=== PATIENT | male | born 2000 | race Caucasian/White ===

== ENCOUNTER 2025-06-19 12:56 | Observation (INO) ==
--- NOTE | 2025-06-19 13:08 | Emergency Department Note ---
Impression & Plan Intractable nausea and vomiting, Diarrhea ED Provider Note CHIEF COMPLAINT: Abdominal pain, vomiting, diarrhea HISTORY OF PRESENTING ILLNESS: The patient is a 24-year-old male who arrives to the emergency department for evaluation of persistent abdominal pain, nausea, vomiting and diarrhea over the last few days. He reports he was seen at urgent care, and prescribed oral Zofran, which has not helped his symptoms. He states no fever, or recent illness. He reports his abdomen hurts in the epigastrium, however he has pain in the lower abdomen as well. He reports diarrhea is yellow in color, he denies any blood. He denies dysuria, or flank pain, he reports no radiation into the testicles. Patient reports medical marijuana use, with previous episodes of hyperemesis. He reports his most recent episode required a 2-week inpatient hospitalization for dehydration, and symptom control. REVIEW OF SYSTEMS: See HPI for pertinent positives and pertinent negatives. ALLERGIES: See below MEDICATIONS: See below PAST MEDICAL HISTORY: See below PHYSICAL EXAM: VITALS: Vitals are noted on the nurse's note and reviewed by myself. Vital signs stable. GENERAL: 24-year-old male, in mild distress, diaphoretic, well-developed well- nourished. SKIN: The skin was without rashes, erythema, edema, or bruising. HEAD: Normocephalic atraumatic. EARS: External auditory canals clear, tympanic membranes pearly stack without erythema or effusion bilaterally. EYES: Pupils equal round and reactive to light and accommodation. Conjunctivae without injection, sclerae without icterus. Extraocular movements intact. NOSE: Patent, turbinates without inflammation or discharge. No sinus tenderness. MOUTH: Mucous membranes moist. Tonsils are not enlarged. Pharynx without erythema or exudate. Uvula midline. Airway patent. Tongue does not deviate. NECK: Supple without nuchal rigidity. No lymphadenopathy. Cervical spine is nontender. No JVD. HEART: Regular rate and rhythm without murmurs gallops or rubs. LUNGS: Clear to auscultation bilaterally without wheezes, rales or rhonchi. No retractions or accessory muscle use. ABDOMEN: Positive bowel sounds x 4. Soft, tenderness to palpation epigastrium, bilateral lower quadrants. No rebound tenderness or guarding. MUSCULOSKELETAL: No muscle atrophy, erythema, or edema noted. Normal gait. Strength 5/5 throughout. NEURO: Patient was alert and oriented to person place and time. No focal neurological deficits. DIFFERENTIAL DIAGNOSIS: Appendicitis, testicular torsion, infections, diverticulitis, UTI, obstruction, mesenteric ischemia, aortic pathology, inflammatory bowel disease, renal colic, PUD, pancreatitis, biliary pathology, hernia, volvulus, constipation, as well as other pathologies. ED COURSE AND MEDICAL DECISION MAKING: MEDICATIONS GIVEN: 2 L NSS bolus, 4 mg IV Zofran, 1 mg IM Haldol MONITOR: Continuous flume worker: Order was placed for continuous flume worker. Patient was placed on the flume worker and continuous pulse ox. Patient was noted to be in normal sinus rhythm at an initial rate of 76 bpm per my interpretation. INTERPRETATION OF LABS: I interpreted the labs with full lab results as below in the lab section of this note. Pertinent lab results discussed in the MDM section below. INTERPRETATION OF IMAGING: Imaging studies were interpreted by myself and read by radiology as per the imaging section of this note. EXTERNAL RECORDS REVIEWED: Visit note from [facility] urgent care. CHRONIC MEDICAL/SOCIAL CONDITIONS AFFECTING CARE: Medical marijuana use, history of cannabinoid hyperemesis. MDM SUMMARY: The patient is a pleasant, 24-year-old male who arrives to the emergency department for evaluation of the above-stated complaint. A saline lock was established, CBC, CMP, lactate, lipase, urinalysis were obtained. Lab work shows no leukocytosis, with slight anemia. CMP is unremarkable. Lipase negative. Lactate 1.7. Urinalysis shows 3+ ketones. Stool culture negative. Patient was provided IV fluids, IV Zofran, and IM Haldol, with no relief of symptoms. CT imaging of the abdomen and pelvis with IV contrast was obtained due to the severe tenderness to palpation, CT imaging shows no acute findings. Parents were at bedside upon reevaluation. They stated the patient required 2 weeks of hospital admission for IV hydration and symptom control. The patient reports he is still having severe nausea, vomiting, and abdominal pain. I recommended capsaicin cream, which he declined as he said it does not work. I do believe the patient will require hospital admission at this time, as I fear he will not have successful resolution of symptoms, and likely return to the emergency department. I spoke with the resident working with Dr. Johansen, who agreed to evaluate the patient for admission. Please refer to their documentation for further patient workup and care. DIAGNOSIS: Intractable nausea and vomiting, diarrhea The chart was completed utilizing [employer] Speech voice recognition software. Grammatical errors, random word insertions, pronoun errors, and incomplete sentences are an occasional consequence of this system due to software limitations, ambient noise, and hardware issues. Any formal questions or concerns about the content, text, or information contained within the body of this dictation should be directly addressed to the provider for clarification. Past Med/Surg History Problem List (Updated 06/19/25 @ 18:03 by ROLA Choudhary) Diarrhea (Acute) Intractable nausea and vomiting (Acute) Social History Tobacco Type: E-cigarettes / Vaping Feels Safe at Home: Yes Allergies Allergies Allergy/AdvReac Type Severity Reaction Status Date / Time No Known Allergies Allergy Unverified 06/19/25 17:21 Home Meds Home Medications Medication Instructions Recorded Confirmed No Known Home Medications 06/19/25 06/19/25 Results & Data (ED) Vital Signs Vital Signs - 24 hr 06/19/25 12:59 06/19/25 13:27 06/19/25 13:27 Temperature 36 C L Temperature Source Temporal Artery Scan Pulse Rate 76 81 Pulse Rate [Apical] 81 Pulse Rate from SpO2 Sensor Pulse Rhythm Regular Pulse Rhythm [Apical] Regular Pulse Strength Normal Pulse Strength [Apical] Normal Respiratory Rate 19 14 14 Respiratory Effort / Characteristics Non-Labored Spontaneous Non-Labored Spontaneous Respiratory Depth Normal Normal Respiratory Pattern Regular Regular Blood Pressure 133/85 Blood Pressure [Right Arm] 142/103 H Blood Pressure Mean 101 Blood Pressure Mean [Right Arm] 116 Blood Pressure Position [Right Arm] Sitting Pulse Oximetry 100 100 100 Oxygen Delivery Method Room Air Room Air Room Air Sepsis Recent Fever Within 48 Hours No Sepsis New/Unexplained Change in Mental Status No Sepsis Action Taken by Nursing No Action Required 06/19/25 14:33 06/19/25 14:41 06/19/25 15:00 Temperature Temperature Source Pulse Rate 72 Pulse Rate [Apical] 80 Pulse Rate from SpO2 Sensor 76 Pulse Rhythm Pulse Rhythm [Apical] Regular Pulse Strength Pulse Strength [Apical] Normal Respiratory Rate 18 16 Respiratory Effort / Characteristics Non-Labored Spontaneous Respiratory Depth Normal Respiratory Pattern Regular Blood Pressure 131/85 131/85 Blood Pressure [Right Arm] 150/92 H Blood Pressure Mean 100 95 Blood Pressure Mean [Right Arm] 111 Blood Pressure Position [Right Arm] Lying Pulse Oximetry 100 100 Oxygen Delivery Method Room Air Sepsis Recent Fever Within 48 Hours Sepsis New/Unexplained Change in Mental Status Sepsis Action Taken by Nursing 06/19/25 15:57 06/19/25 16:01 06/19/25 17:00 Temperature Temperature Source Pulse Rate 77 Pulse Rate [Apical] 90 Pulse Rate from SpO2 Sensor Pulse Rhythm Pulse Rhythm [Apical] Regular Pulse Strength Pulse Strength [Apical] Normal Respiratory Rate 23 20 Respiratory Effort / Characteristics Non-Labored Spontaneous Respiratory Depth Normal Respiratory Pattern Regular Blood Pressure 131/66 118/76 Blood Pressure [Right Arm] 143/90 H Blood Pressure Mean 99 100 Blood Pressure Mean [Right Arm] 107 Blood Pressure Position [Right Arm] Lying Pulse Oximetry 98 96 Oxygen Delivery Method Room Air Sepsis Recent Fever Within 48 Hours Sepsis New/Unexplained Change in Mental Status Sepsis Action Taken by [facility] Medications Current Medication List: was personally reviewed by me Laboratory Data Attestation: I reviewed the patient's lab results. 06/19/25 13:21 06/19/25 13:21 Lab Results 06/19/25 06/19/25 06/19/25 Range/Units 13:21 13:35 13:36 WBC 10.11 (4.8-10.8) K/ul RBC 4.26 L (4.70-6.10) M/uL Hgb 13.0 L (14.0-18.0) g/dl Hct 38.3 L (42.0-52.0) % MCV 89.9 (80.0-100.0) fL MCH 30.5 (25.0-34.0) pg MCHC 33.9 (32.0-36.0) g/dL RDW Std Deviation 42.8 (36.4-46.3) fL RDW Coeff of Sean 13.0 (11.5-14.5) % Plt Count 293 (130-400) K/uL MPV 9.4 (9.4-12.4) fL Immature Gran % (Auto) 0.4 % Neut % (Auto) 86.0 % Lymph % (Auto) 10.4 % [place] % (Auto) 2.8 % Eos % (Auto) 0.1 % Baso % (Auto) 0.3 % Neut # (Auto) 8.70 H (1.40-6.50) K/uL Lymph # (Auto) 1.05 L (1.20-3.40) K/uL [place] # (Auto) 0.28 (0.11-0.59) K/uL Eos # (Auto) 0.01 (0.00-0.50) K/uL Baso # (Auto) 0.03 (0.00-0.20) K/uL Immature Gran # (Auto) 0.04 (0.01-0.20) K/uL Sodium 140 (136-145) mmol/L Potassium 3.5 (3.5-5.1) mmol/L Chloride 105 (98-107) mmol/L Carbon Dioxide 24 (21-32) mmol/L Anion Gap 11 (3-11) BUN 11 (6-23) mg/dl Creatinine 0.94 (0.6-1.4) mg/dl Est Cr Clr Drug Dosing 123.8 ml/min eGFR 117.54 BUN/Creatinine Ratio 11.7 (10-20) Glucose 109 H (70-99(Fasting)) mg/dl Lactate 1.7 (0.4-2.0) mmol/L Calcium 9.3 (8.6-10.3) mg/dl Total Bilirubin 0.9 (0.2-1.0) mg/dl AST 26 (13-39) U/L ALT 23 (7-52) U/L Alkaline Phosphatase 58 (34-104) U/L Total Protein 7.2 (6.0-8.3) gm/dl Albumin 5.0 (3.4-5.0) gm/dl Globulin 2.2 L (2.5-4.0) gm/dl Albumin/Globulin Ratio 2.3 H (0.9-2) Lipase 21 (11-82) U/L Urine Color Yellow Urine Appearance Clear (Clear) Urine pH 7.0 (4.5-7.5) Ur Specific Mobile 1.020 (1.000-1.030) Urine Protein Negative (Negative) Urine Glucose (UA) Negative (Negative) Urine Ketones 3+ H (Negative) Urine Blood Negative (Negative) Urine Nitrite Negative (Negative) Urine Bilirubin Negative (Negative) Urine Urobilinogen Negative (Negative) Ur Leukocyte Esterase Negative (Negative) Urine Comment Stl C. cayetanensis PCR Not Detected (NotDetected) Stool Rotavirus A PCR Not Detected (NotDetected) Stl Adenov F 40/41 PCR Not Detected (NotDetected) Stool Astrovirus (PCR) Not Detected (NotDetected) Stool Campylobacter PCR Not Detected (NotDetected) Stool Cryptosporidium PCR Not Detected (NotDetected) Stl E.coli Shiga Tox PCR Not Detected (NotDetected) Stl Enterotoxigenic E PCR Not Detected (NotDetected) Stool EPEC (PCR) Not Detected (NotDetected) Stool EAEC (PCR) Not Detected (NotDetected) Stl E. histolytica PCR Not Detected (NotDetected) Stool Giardia Lamblia PCR Not Detected (NotDetected) Stool Salmonella PCR Not Detected (NotDetected) Stool Sapovirus (PCR) Not Detected (NotDetected) Stl P. shigelloides PCR Not Detected (NotDetected) Stl Shigella/EIEC PCR Not Detected (NotDetected) St Y.enterocolitica PCR Not Detected (NotDetected) Stool Vibrio (PCR) Not Detected (NotDetected) Stl Vibrio cholerae PCR Not Detected (NotDetected) Stl Norovirus GI/GII PCR Not Detected (NotDetected) Administered Medications Discontinued Medications Haloperidol Lactate (Haloperidol Lactate 5 Mg/Ml 1 Ml Vial) 1 mg IM NOW STA Stop: 06/19/25 15:07 Last Admin: 06/19/25 15:10 Dose: 1 mg Documented By: LINA Sodium Chloride (Nss) 1,000 mls @ 999 mls/hr IV .Q1H1M STA Stop: 06/19/25 14:16 Last Admin: 06/19/25 13:39 Dose: 999 mls/hr Documented By: LINA Sodium Chloride (Nss) 1,000 mls @ 999 mls/hr IV .Q1H1M ONE Stop: 06/19/25 15:02 Last Admin: 06/19/25 14:06 Dose: 999 mls/hr Documented By: LINA Ioversol (Optiray 320 100ml) 94 ml IV ONCE ONE Stop: 06/19/25 14:19 Last Admin: 06/19/25 14:18 Dose: 94 ml Documented By: ANIKET Ondansetron HCl (Ondansetron Inj 2 Mg/Ml 2 Ml Vial) 4 mg IV NOW STA Stop: 06/19/25 13:17 Last Admin: 06/19/25 13:39 Dose: 4 mg Documented By: [facility] Imaging Data Attestation: I personally reviewed and interpreted this imaging study as follows: Radiologist's Impression: Abdomen/Pelvis CT 06/19/25 13:16 EXAMINATION: CT of the abdomen and pelvis performed after the administration of IV contrast TECHNIQUE: Helical CT images from the lung bases through the symphysis pubis were obtained with contrast. Coronal and sagittal reformatted images were generated at a workstation for further assessment. Dose reduction techniques were achieved by using automatic exposure control and/or adjustment of mA and/or kV according to patient size and/or use of iterative reconstruction technique. COMPARISON: None HISTORY: Abdominal pain FINDINGS: Lower chest: No consolidation. No pleural effusion or pneumothorax. Liver: No suspicious liver lesions. Portal veins appear patent. Gallbladder: No gallstones. No evidence of acute cholecystitis. Spleen: Normal size. Pancreas: No suspicious pancreatic lesions. The pancreatic duct is not dilated. Adrenal glands: No adrenal nodules. Kidneys: No hydronephrosis or obstructing renal stones. Bladder / Pelvic organs: Unremarkable. Bowel: No bowel obstruction. No abnormal bowel wall thickening. The appendix appears surgically absent. Lymph nodes: No retroperitoneal, mesenteric, or pelvic lymphadenopathy. Peritoneum / Retroperitoneum: No free fluid or air within the abdomen. Vessels: No infrarenal aortic aneurysm. Bones and soft tissues: No suspicious lesion in the bones. IMPRESSION: No acute finding in the abdomen or pelvis Electronically signed by Roque Mcdaniel 06-19-2025 2:39 PM Discharge Plan Visit Data Chief Complaint: Vomiting Stated Complaint: VOMITING AND DIARRHEA ED Provider: Oumar Rader ED Midlevel Provider: Malka Matamoros Discharge Problem: Intractable nausea and vomiting, Diarrhea Patient Disposition: Admitted As Inpatient Condition: Fair Forms Stand Alone Forms: [place] Prescriptions Prescriptions: No Action No Known Home Medications Referrals Referrals: PCP,NO [Primary Care Provider] -
[2025-06-19 13:35] LABS: Hematocrit (blood only) 38.3 % (42.0-52.0); Hemoglobin 13.0 g/dl (14.0-18.0); Immature Granulocytes # (auto) 0.04 K/uL (0.01-0.20); Immature Granulocytes % (auto) 0.4 %; Mean Corpuscular Hemoglobin 30.5 pg (25.0-34.0); Mean Corpuscular Volume 89.9 fL (80.0-100.0); Platelet Count 293 K/uL (130-400); RDW Standard Deviation 42.8 fL (36.4-46.3); Red Blood Count 4.26 M/uL (4.70-6.10); White Blood Count 10.11 K/ul (4.8-10.8)
[2025-06-19] MEDS: SODIUM CHLORIDE 0.9% 1,000 ML IV STA (13:39)
[2025-06-19] MEDS: ONDANSETRON INJ 2 MG/ML 2 ML VIAL IV STA (13:39)
[2025-06-19 13:54] LABS: Alanine Aminotransferase 23.0 U/L (7-52); Albumin Globulin Ratio 2.3 (0.9-2); Alkaline Phosphatase 58.0 U/L (34-104); Anion Gap 11.0 (3-11); Bilirubin,Total 0.9 mg/dl (0.2-1.0); Blood Urea Nitrogen 11.0 mg/dl (6-23); Calcium 9.3 mg/dl (8.6-10.3); Carbon Dioxide 24.0 mmol/L (21-32); Chloride 105.0 mmol/L (98-107); Creatinine Clr Calc Pharmacy 123.8 ml/min; Globulin 2.2 gm/dl (2.5-4.0); Glucose 109.0 mg/dl (70-99(Fasting)); Lipase 21.0 U/L (11-82); Potassium 3.5 mmol/L (3.5-5.1); Sodium 140.0 mmol/L (136-145); Total Protein 7.2 gm/dl (6.0-8.3)
[2025-06-19 14:00] LABS: Appearance Urine Clear (Clear); Glucose Urine UA Negative (Negative)
[2025-06-19] MEDS: SODIUM CHLORIDE 0.9% 1,000 ML IV ONE (14:06)
[2025-06-19] MEDS: OPTIRAY 320 100ml IV ONE (14:18)
--- NOTE | 2025-06-19 14:40 | CT Scan Report ---
EXAMINATION: CT of the abdomen and pelvis performed after the administration of IV contrast TECHNIQUE: Helical CT images from the lung bases through the symphysis pubis were obtained with contrast. Coronal and sagittal reformatted images were generated at a workstation for further assessment. Dose reduction techniques were achieved by using automatic exposure control and/or adjustment of mA and/or kV according to patient size and/or use of iterative reconstruction technique. COMPARISON: None HISTORY: Abdominal pain FINDINGS: Lower chest: No consolidation. No pleural effusion or pneumothorax. Liver: No suspicious liver lesions. Portal veins appear patent. Gallbladder: No gallstones. No evidence of acute cholecystitis. Spleen: Normal size. Pancreas: No suspicious pancreatic lesions. The pancreatic duct is not dilated. Adrenal glands: No adrenal nodules. Kidneys: No hydronephrosis or obstructing renal stones. Bladder / Pelvic organs: Unremarkable. Bowel: No bowel obstruction. No abnormal bowel wall thickening. The appendix appears surgically absent. Lymph nodes: No retroperitoneal, mesenteric, or pelvic lymphadenopathy. Peritoneum / Retroperitoneum: No free fluid or air within the abdomen. Vessels: No infrarenal aortic aneurysm. Bones and soft tissues: No suspicious lesion in the bones. IMPRESSION: No acute finding in the abdomen or pelvis Electronically signed by Roque Mcdaniel 06-19-2025 2:39 PM
[2025-06-19 15:05] LABS: Adenovirus F 40/41 PCR Not Detected (NotDetected); Campylobacter PCR Not Detected (NotDetected); Enteroaggregative E.coli(EAEC) Not Detected (NotDetected); Shiga-like Toxin E.coli (STEC) Not Detected (NotDetected); Vibrio species PCR Not Detected (NotDetected)
[2025-06-19] MEDS: HALOPERIDOL LACTATE 5 MG/ML 1 ML VIAL IM STA ×2 (15:10→22:07)
[2025-06-19] MEDS ORDERED: ONDANSETRON INJ 2 MG/ML 2 ML VIAL IV PRN (18:25)
--- NOTE | 2025-06-19 18:59 | History & Physical Report ---
Date of Service June 19, 2025 Assessment & Plan (1) Diarrhea: (2) Cannabinoid hyperemesis syndrome: Plan #Cannabinoid hyperemesis syndrome - 3 ED visits for similar concerns in 2021 when he was diagnosed with hyperemesis syndrome, no ED visit or admission since then - received IVF, Zofran 4mg IV, and IM Haldol 1mg in ED - attempted PO trial in ED after 30-40 min of no N/V, however had vomiting episodes shortly after drinking kim mario - Electrolytes WNL - admit med-surg - Ordered another dose of Zofran 4mg IV, IM Haldol 1mg, and NS fluids 125 mL/hr for 2L - EKG to evaluate for QTC - Evaluate BMP and CBC in AM #Diarrhea - could be gastroenteritis, IBS, viral - stool studies negative - UA negative - CT abdomen negative - Evaluate BMP and CBC in AM Dispo: admit med-surg Code status: Full Diet: NPO VTE Prophylaxis: SCDs History of Present Illness Chief Complaint: nausea and vomiting Primary Care Provider: NO PCP Mr. Leblanc is a 24 y.o. M with no significant past medical history is admitted due to vomiting. Patient states he started vomiting this morning. Reports 6-10 vomiting episodes today. Denies bloody or bilious appearance. Last vomiting episode was 40 minutes ago. He states he has been to the ER 3 times in 2022 for similar concerns and was diagnosed with cannabinoid hyperemesis syndrome, ho wever has never been admitted. 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 His last use of marijuana was last night before dinner. Reports mild diffuse abdominal pain and few week history of diarrhea. No blood noted in BM. Denies pain elsewhere. Reports night sweats and chills. He has not eaten today, last meal was yesterday night at 8pm. He feels mildly lightheaded and weak. Denies CP and SOB. Allergies Allergy/AdvReac Type Severity Reaction Status Date / Time No Known Allergies Allergy Unverified 06/19/25 17:21 Home Medications Medication Instructions Recorded Confirmed Type No Known Home Medications 06/19/25 06/19/25 History Past Med/Surg History Problem List (Updated 06/19/25 @ 19:09 by Karlie Devi DO) Cannabinoid hyperemesis syndrome Diarrhea (Acute) Intractable nausea and vomiting (Acute) Social History Smoking Status: Current every day smoker Tobacco Type: E-cigarettes / Vaping Hx Alcohol Use: No Hx Substance Use: Yes Preferred Language: Belgian Communication Ability: Effective Service Delivery Management Consultant Required: No Beliefs That Will Affect Care: None Current Living Situation: Alone Current Living Situation Comment: PT LIVES ALONE IN APARTMENT, X2 ROOMATES COMING NEXT MONTH Feels Safe at Home: Yes Safety Concerns: Feels Safe At This Time Assistive Devices: Contacts Assistive Devices Comment: INVISALIGN RETAINER Review of Systems Constitutional: as per Subjective / HPI Physical Exam Constitutional: WD/WN, vitals as above Respiratory: normal respiratory effort, lungs clear to auscultation Cardiovascular: RRR, no murmur, no edema Gastrointestinal (Abdomen): Inspection/Auscultation: normal bowel sounds Pe rcussion/Palpation: + abdomen tender (diffuse tenderness in all quadrants) Musculoskeletal: +CVA tenderness on L Skin: no rashes, warm and dry Psychiatric: A+Ox3, euthymic affect Results & Data Results & Data Vital Signs (Past 12 Hours) Vital Signs Temp Pulse Pulse Resp BP BP Pulse Ox 06/19/25 17:00 90 20 143/90 H 96 06/19/25 16:01 118/76 06/19/25 15:57 77 23 131/66 98 06/19/25 15:00 80 16 150/92 H 100 06/19/25 14:41 131/85 06/19/25 14:33 72 18 131/85 100 06/19/25 13:27 81 14 100 06/19/25 13:27 81 14 142/103 H 100 06/19/25 12:59 36 C L 76 19 133/85 100 O2 Del Method 06/19/25 17:00 Room Air 06/19/25 16:01 06/19/25 15:57 06/19/25 15:00 Room Air 06/19/25 14:41 06/19/25 14:33 06/19/25 13:27 Room Air 06/19/25 13:27 Room Air 06/19/25 12:59 Room Air Code Status & VTE Plan VTE Prophylaxis Plan VTE Prophylaxis will be ordered: Yes Supervising Physician Co-Signing Physician Notes Patient seen and examined, chart reviewed, case discussed with Dr. Devi and I agree with the assessment and plan as above. Patient is admitted for hyperemesis likely cannabinoid related. Patient placed on haldol and zofran with additional IVF. Doubt gastroenteritis. Will admit to medical. Assessment/Plan -supportive care. IVF Meds for nausea. will need to discuss with case management support for him to quit marijuana. Resident Activity Tracking Resident Involvement: Resident Care Provided Care Provided: Adult Hospital Medicine
[2025-06-19] MEDS: SODIUM CHLORIDE 0.9% 1,000 ML IV SCH (22:07)
[2025-06-19] MEDS: ONDANSETRON INJ 2 MG/ML 2 ML VIAL IV PRN (22:07)
[2025-06-20] MEDS: NICOTINE 14 MG/24 HR PATCH TD SCH (00:56)
[2025-06-20] MEDS ORDERED: Nursing to Pharmacy Communication SCH (01:00)
[2025-06-20 06:12] LABS: Hematocrit (blood only) 34.1 % (42.0-52.0); Hemoglobin 11.8 g/dl (14.0-18.0); Immature Granulocytes # (auto) 0.03 K/uL (0.01-0.20); Immature Granulocytes % (auto) 0.3 %; Mean Corpuscular Hemoglobin 30.8 pg (25.0-34.0); Mean Corpuscular Volume 89.0 fL (80.0-100.0); Platelet Count 265 K/uL (130-400); RDW Standard Deviation 42.6 fL (36.4-46.3); Red Blood Count 3.83 M/uL (4.70-6.10); White Blood Count 9.84 K/ul (4.8-10.8)
[2025-06-20 06:38] LABS: Anion Gap 9.0 (3-11); Blood Urea Nitrogen 6.0 mg/dl (6-23); Calcium 8.9 mg/dl (8.6-10.3); Carbon Dioxide 26.0 mmol/L (21-32); Chloride 105.0 mmol/L (98-107); Creatinine Clr Calc Pharmacy 139.7 ml/min; Glucose 91.0 mg/dl (70-99(Fasting)); Potassium 3.3 mmol/L (3.5-5.1); Sodium 140.0 mmol/L (136-145)
[2025-06-20 07:28] LABS: Amphetamines+Metham, Urine Neg (Neg); MDMA (Ecstacy), Urine Neg (Neg); Marijuana, Urine Pos (Neg)
[2025-06-20] MEDS: REMOVE NICODERM PATCH SCH (07:49)
--- NOTE | 2025-06-20 10:47 | Hospitalist Progress Note ---
Date of Service June 20, 2025 Assessment & Plan (1) Diarrhea: (2) Cannabinoid hyperemesis syndrome: Plan #Cannabinoid hyperemesis syndrome - 3 ED visits for similar concerns in 2021 when he was diagnosed with hyperemesis syndrome, no ED visit or admission since then - received IVF, Zofran 4mg IV, and IM Haldol 1mg in ED - attempted PO trial in ED after 30-40 min of no N/V, however had vomiting episodes shortly after drinking kim mario - Electrolytes WNL - admit med-surg - Ordered another dose of Zofran 4mg IV, IM Haldol 1mg, and NS fluids 125 mL/hr for 2L on 06/19 - EKG to evaluate for QTC - Evaluate BMP and CBC in AM - attempted PO trial 06/20 with clear liquid diet, did well in AM but had few vomiting episodes in PM - Ordered compazine 06/20 PM - Nicotine patch TD QAM #Diarrhea - could be gastroenteritis, IBS, viral - stool studies negative - UA negative - CT abdomen negative - K+ 3.3 06/20, repleted - Evaluate BMP and CBC in AM Dispo: admit med-surg Code status: Full Diet: clear liquid VTE Prophylaxis: SCDs Admission and Anticipated Discharge Date Admission Date: June 19, 2025 Supervising Physician Co-Signing Physician Notes Patient seen and examined, chart reviewed, case discussed with Dr. Devi and I agree with the assessment and plan as above. Patient remains hospitalized for cannabinoid hyperemesis syndrome Patient contiues to be nauseous and is throwing up. will transition to compazine and monitor as zofran does not appear to be helping. Assessment/Plan -supportive care. IVF Meds for nausea. will need to discuss with case management support for him to quit marijuana. Subjective Mr. Leblanc is a 24 y.o. M with no significant past medical history is admitted due to vomiting. Reports continued nausea and 1 vomiting episode this morning. Upon visiting him later in the evening, had few more vomiting episodes after being upgraded to clear liquid diet. States his abdominal pain has improved since yesterday. Reports 2-3 episodes of diarrhea yesterday with no blood. States he had 1 black, tarry stool this morning. However, has had multiple bowel movements after which were loose but brown in color. No other acute complaints. Review of Systems Constitutional: as per Subjective / HPI Physical Exam Constitutional: WD/WN, vitals as above Respiratory: normal respiratory effort, lungs clear to auscultation Cardiovascular: RRR, no murmur, no edema Gastrointestinal (Abdomen): Inspection/Auscultation: normal bowel sounds Percussion/Palpation: + abdomen tender (diffuse tenderness in all quadrants) Skin: no rashes, warm and dry Psychiatric: A+Ox3, euthymic affect Results & Data Results & Data Vital Signs (Past 12 Hours) Vital Signs Temp Pulse Resp BP Pulse Ox O2 Del Method 06/20/25 07:04 36.8 C 81 14 134/82 96 Room Air Resident Activity Tracking Resident Involvement: Resident Care Provided Care Provided: Adult Hospital Medicine
[2025-06-20] MEDS: POTASSIUM CHLORIDE 40 MEQ in SODIUM CHLORIDE 0.9% 1,000 ML IV SCH (14:34)
[2025-06-20] MEDS: PROCHLORPERAZINE 5 MG in SYRINGE 4 ML IV PRN (18:20)
--- NOTE | 2025-06-20 22:15 | Electrocardiogram Report ---
Test Reason : Blood Pressure : */* mmHG Vent. Rate : 71 BPM Atrial Rate : 71 BPM P-R Int : 168 ms QRS Dur : 90 ms QT Int : 370 ms P-R-T Axes : 82 75 65 degrees QTcB Int : 402 ms Normal sinus rhythm Early repolarization Normal ECG No previous ECGs available Confirmed by Bjorn Eric ([id number]) on 06/20/2025 10:14:59 PM Referred By: REFERRED SELF Confirmed By: Bjorn Eric
[2025-06-21] MEDS: FAMOTIDINE 20 MG TAB PO ONE (00:13)
[2025-06-21 07:52] LABS: Hematocrit (blood only) 36.5 % (42.0-52.0); Hemoglobin 12.5 g/dl (14.0-18.0); Immature Granulocytes # (auto) 0.02 K/uL (0.01-0.20); Immature Granulocytes % (auto) 0.3 %; Mean Corpuscular Hemoglobin 31.0 pg (25.0-34.0); Mean Corpuscular Volume 90.6 fL (80.0-100.0); Platelet Count 258 K/uL (130-400); RDW Standard Deviation 43.0 fL (36.4-46.3); Red Blood Count 4.03 M/uL (4.70-6.10); White Blood Count 7.93 K/ul (4.8-10.8)
[2025-06-21 08:07] LABS: Anion Gap 8.0 (3-11); Blood Urea Nitrogen 5.0 mg/dl (6-23); Calcium 9.1 mg/dl (8.6-10.3); Carbon Dioxide 27.0 mmol/L (21-32); Chloride 104.0 mmol/L (98-107); Creatinine Clr Calc Pharmacy 148.8 ml/min; Glucose 90.0 mg/dl (70-99(Fasting)); Potassium 3.6 mmol/L (3.5-5.1); Sodium 139.0 mmol/L (136-145)
--- NOTE | 2025-06-21 09:00 | Billing Data ---
Date of Service June 19, 2025 Coding Level of Care Code 94018 INT INP/OBS CARE
--- NOTE | 2025-06-21 09:02 | Billing Data ---
Date of Service June 20, 2025 Coding Level of Care Code 59621 SUB INP/OBS CARE
[2025-06-21 09:30] LABS: Magnesium 1.6 mg/dl (1.7-2.4)
--- NOTE | 2025-06-21 11:17 | Hospitalist Progress Note ---
Date of Service June 21, 2025 Assessment & Plan (1) Cannabinoid hyperemesis syndrome: (2) Diarrhea: Plan This patient is a 24-year-old male who presents on 06/19 for intractable nausea/vomiting. Hyperemesis syndrome suspected secondary to marijuana use. #Cannabinoid hyperemesis syndrome 3 ED visits for similar concerns in 2021 when he was diagnosed with hyperemesis syndrome, no ED visit or admission since then Urine marijuana (+) on arrival ED course: IVF, Zofran 4mg IV, and IM Haldol 1mg x 1 Attempted PO trial in ED after 30-40 min of no N/V, however had vomiting episodes shortly after drinking kim mario Ordered another dose of Zofran 4mg IV, IM Haldol 1mg, and NS fluids 125 mL/hr for 2L on 06/19 EKG ordered; QTc okay at 402 Attempted PO trial 06/20 with clear liquid diet, did well in AM but had few vomiting episodes in PM Patient tolerating clear liquid diet on the morning of 06/13 Advance diet as tolerated Zofran PRN Compazine PRN Nicotine patch TD QAM Famotidine 20 mg IV BID (as patient reports this has been helping a lot) #Diarrhea Could be gastroenteritis, IBS, viral Stool studies negative UA negative CT abdomen negative Monitor K + mag #Hypomagnesemia Mild; mag 1.6 Suspect due to GI losses Magnesium sulfate 1 g IV x 1 Recheck a.m. mag #Ketonuria 3+ ketones noted in the UA No prior history of diabetes Suspect due to poor p.o. intake #Anxiety Trial of Ativan 0.25 mg IV x 1 for both anxiety and nausea Disposition: Continued stay on MedSurg Advance diet as tolerated Admission and Anticipated Discharge Date Admission Date: June 19, 2025 Subjective Mr. Leblanc is sitting hunched over at the side of the bed this morning. He reports he is still feeling significantly nauseous. He had an episode of vomiting this morning, but attributes to "mucus and drainage". He did manage to keep down his breakfast, which included broth and tea. Patient reports he does have a history of lactose intolerance, but this is undiagnosed. No prior history of IBS, gluten intolerance, UC, or IBD to his knowledge. He has been having "mucousy" diarrhea over the past several days. He still reports he is having abdominal pain, bloating, and has been passing gas this morning as well as dry heaving. No blood in vomit he reports his abdominal pain is generalized, and attributes it to dry heaving. Prior abdominal surgeries include appendectomy. No PMH of SBO. No PMH of diabetes; no family history of diabet es. He has had prior episodes of hyperemesis syndrome, which are often related to cannabis use. While he does believe that cannabis use causes current episode, he is also concerned for IBS given his mucousy stools. Additionally, patient reports he has been feeling anxious in the hospital. He is also being treated for redness and swelling on the outside of the penis; currently taking fluconazole for presumed yeast infection; no drainage from penis. He reports he is not currently sexually active. ROS: Patient endorses chills overnight, generalized abdominal pain, nausea, vomiting, dry heaving, mucousy diarrhea, and abdominal bloating Patient denies fever, joint pain, headache, chest pain, chest palpitations, SOB, hematemesis, penile discharge, or burning with urination. Review of Systems Review of Systems: See HPI above Physical Exam Physical Exam: General: Patient is sitting hunched over at the side of the bed dry heaving upon arrival; pleasant affect; anxious; non-toxic appearing; cooperative; SpO2 97% on RA HEENT: normocephalic, atraumatic; no scleral icterus; PERRLA; vision and hearing grossly intact Neck: supple; no lymphadenopathy; trachea midline Skin: warm, dry without signs of tenting; no cyanosis; no rashes, bruising, lesions, or erythema noted CV: chest wall NTP; RRR; S1/S2 normal; no murmurs/rubs/gallops; pulses intact and symmetric at radial, DP, and PT Lungs: no acute respiratory distress; symmetrical chest wall expansion; clear breath sounds across all lung lyle w/o adventitious sounds; no wheezing ABD: Soft, generalized TTP on all 4 quadrants; BS present; no rebound/guarding; no distention; no rashes or bruising appreciated on the abdomen or flanks bilaterally : No penile discharge appreciated; mildly erythematous rash on the genitals that appears to be resolving MSK: no tics or fasciculations; no edema noted in the LEs b/l, nonerythematous Neuro: A&Ox3; normal mood and affect; fluent speech; no focal deficits; sensation intact and symmetric in the lower extremity bilaterally assessed via light touch Results & Data Results & Data Vital Signs (Past 12 Hours) Vital Signs Temp Pulse Resp BP Pulse Ox O2 Del Method 06/21/25 06:55 36.7 C 69 16 122/73 97 Room Air PG Care Time/CCT Total # of Minutes Spent Total Time Spent with Patient: Total time spent is greater than 50% in coordination of care (as documented) at patient's floor/unit and/or counseling patient: C[place] [address] SUB INP/OBS CARE 2/35MIN Patient Type Established History Comprehensive Exam Comprehensive Medical Decision Making Moderate Complexity Diagnoses Cannabinoid hyperemesis syndrome R11.2; F12.90 Diarrhea R19.7
[2025-06-21] MEDS: FAMOTIDINE 20MG IV PUSH 20 MG/5 ML SYR IV STA (12:08)
[2025-06-21] MEDS: MAGNESIUM SULFATE / D5W 1 GM/100 ML BAG IV ONE (12:14)
[2025-06-21] MEDS: FAMOTIDINE 20MG IV PUSH 20 MG/5 ML SYR IV SCH (21:17)
[2025-06-22 08:02] VITALS: RESP 18
[2025-06-22 08:26] LABS: Hematocrit (blood only) 39.2 % (42.0-52.0); Hemoglobin 13.2 g/dl (14.0-18.0); Immature Granulocytes # (auto) 0.02 K/uL (0.01-0.20); Immature Granulocytes % (auto) 0.3 %; Mean Corpuscular Hemoglobin 30.6 pg (25.0-34.0); Mean Corpuscular Volume 91.0 fL (80.0-100.0); Platelet Count 280 K/uL (130-400); RDW Standard Deviation 42.5 fL (36.4-46.3); Red Blood Count 4.31 M/uL (4.70-6.10); White Blood Count 7.82 K/ul (4.8-10.8)
[2025-06-22 09:17] LABS: Anion Gap 8.0 (3-11); Calcium 9.4 mg/dl (8.6-10.3); Carbon Dioxide 27.0 mmol/L (21-32); Chloride 104.0 mmol/L (98-107); Potassium 3.8 mmol/L (3.5-5.1); Sodium 139.0 mmol/L (136-145)
[2025-06-22 09:23] LABS: Blood Urea Nitrogen 6.0 mg/dl (6-23); Creatinine Clr Calc Pharmacy 127.3 ml/min; Glucose 90.0 mg/dl (70-99(Fasting))
[2025-06-22] MEDS: ACETAMINOPHEN 1,000 MG/100 ML VIAL IV PRN (09:41)
[2025-06-22 14:15] VITALS: BP 132/79; PULSE 72; TEMP 98.4; O2SAT 100
--- NOTE | 2025-06-22 16:10 | Discharge Summary ---
Discharge Summary Date of Service June 22, 2025 Principal Dx & Hospital Course #1 = Principal Diagnosis (1) Cannabinoid hyperemesis syndrome: (2) Diarrhea: Plan This patient is a 24-year-old male who presents on 06/19 for intractable nausea/vomiting. Hyperemesis syndrome suspected secondary to marijuana use. Day of discharge 06/22: Mr. Leblanc reports he is feeling okay this morning. While he slept well, he tried advancing to a solid diet last night for dinner, and threw up approximately 20 to 30 minutes after eating. This morning, he tried solid food again, but is now experiencing left lower quadrant abdominal pain proximal 15 minutes later. He is still having liquidy, mucousy stool, and reports he is having lots of abdominal bloating and gas. He denies any blood in his vomit, but does report it is bilious, and contains whatever he tends to eat just before vomiting. He rates his left lower quadrant/umbilical pain as a 6 out of 10 at present. He does report that the IV pain medications, nausea medications, and acid reducers have been helping to alleviate his symptoms. ROS: Patient endorses anxiety, LLQ abdominal pain, umbilical pain, and N/V/D. Patient denies fever, chills, dizziness/lightheadedness when walking to the bathroom, headache, chest pain, SOB, cough, hematemesis, changes in urinary habits, burning with urination, or blood in the urine or stool. ADDENDUM at 1400 on 06/22: Patient reports he is feeling much better this afternoon. He believes that his stomach pain/discomfort this morning was due to primarily eating/drinking acidic foods this morning (orange juice, red Jell-O, orange sherbet). He tolerated lunch well, and is requesting potential discharge later today if he is tolerating solid food for dinner. He reports he has been eating crackers in the room, and keeping them down without difficulty. In regard to local pharmacies, he reports he is new to the area and is requesting that medications be sent to [facility] on [facility]. #Cannabinoid hyperemesis syndrome 3 ED visits for similar concerns in 2021 when he was diagnosed with hyperemesis syndrome, no ED visit or admission since then Urine marijuana (+) on arrival ED course: IVF, Zofran 4mg IV, and IM Haldol 1mg x 1 Attempted PO trial in ED after 30-40 min of no N/V, however had vomiting episodes shortly after drinking kim mario Ordered another dose of Zofran 4mg IV, IM Haldol 1mg, and NS fluids 125 mL/hr for 2L on 06/19 EKG ordered; QTc okay at 402 Diet was advanced to full liquid diet on 06/21 Patient has begun to tolerate solid foods on 06/22 Zofran PRN Compazine PRN Nicotine patch TD QAM Patient reports he has famotidine at home Will plan to discharge patient on Protonix 40 mg p.o. QAM and Zofran 4 mg ODT q6h PRN for nausea and vomiting #Diarrhea Could be gastroenteritis, IBS, viral Stool studies negative UA negative CT abdomen negative Monitor K + mag #Hypomagnesemia Mild; mag 1.6 Suspect due to GI losses S/p magnesium sulfate 1 g IV x 1 #Ketonuria 3+ ketones noted in the UA No prior history of diabetes Suspect due to poor p.o. intake #Anxiety Trial of low-dose Ativan while in the hospital to help with both patient's anxiety, as well as nausea Patient may benefit from anti-anxiety medications at home; recommend OP follow- up/evaluation during transitional care appointment Disposition: Discharge home Notes For Next Care Provider Patient was hospitalized from 06/20 -06/22 for hyperemesis syndrome suspected to be secondary to cannabis use. He was advanced from a clear liquid to a regular/solid diet while in the hospital. He is being discharged home on Protonix 40 mg p.o. QAM x 14 tablets and Zofran 4 mg ODT q6h PRN; QTc okay at 402. While patient denies history of IBS, he did report mucousy stool while in the emergency department, and expressed a desire for IBS studies upon discharge. Patient also exhibited significant anxiety while in the hospital. It is unclear if this was secondary to being hospitalized vs. his baseline anxiety; recommend evaluation for antianxiety medication/SSRI as outpatient. Admission HPI Per Admitting Provider Mr. Leblanc is a 24 y.o. M with no significant past medical history is admitted due to vomiting. Patient states he started vomiting this morning. Reports 6-10 vomiting episodes today. Denies bloody or bilious appearance. Last vomiting episode was 40 minutes ago. He states he has been to the ER 3 times in 2023 for similar concerns and was diagnosed with cannabinoid hyperemesis syndrome, however has never been admitted. 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 His last use of marijuana was last night before dinner. Reports mild diffuse abdominal pain and few week history of diarrhea. No blood noted in BM. Denies pain elsewhere. Reports night sweats and chills. He has not eaten today, last meal was yesterday night at 8pm. He feels mildly lightheaded and weak. Denies CP and SOB. Admission Exam Per Admitting Provider Constitutional: WD/WN, vitals as above Respiratory: normal respiratory effort, lungs clear to auscultation Cardiovascular: RRR, no murmur, no edema Gastrointestinal (Abdomen): Inspection/Auscultation: normal bowel sounds Percussion/Palpation: + abdomen tender (diffuse tenderness in all quadrants) Musculoskeletal: +CVA tenderness on L Skin: no rashes, warm and dry Psychiatric: A+Ox3, euthymic affect Discharge Exam General: no acute distress; anxious; ambulating well in the room with his IV pole; non-toxic appearing; cooperative; SpO2 100% on room HEENT: normocephalic, atraumatic; no scleral icterus; PERRLA w/ EOMs intact; vision and hearing grossly intact Neck: supple; trachea midline Skin: warm, dry without signs of tenting; no cyanosis; no rashes, bruising, lesions, or erythema noted CV: chest wall NTP; RRR; S1/S2 normal; no murmurs/rubs/gallops; pulses intact and symmetric at radial, DP, and PT Lungs: no acute respiratory distress; symmetrical chest wall expansion; clear breath sounds across all lung lyle w/o adventitious sounds; no wheezing ABD: Soft, mildly TTP in all 4 quadrants; BS present; no rebound/guarding; no distention; no rashes or bruising appreciated in the abdomen or flanks bilaterally MSK: no tics or fasciculations; no edema noted in the LEs b/l, nonerythematous Neuro: A&Ox3; normal mood and affect; fluent speech; no focal deficits; sensation intact and symmetric in the lower extremities bilaterally assessed via light touch Discharge Plan Discharge Items Patient Disposition: Home - Self-Care Reason For Visit: VOMITING Discharge Diagnosis: Hyperemesis syndrome, cyclic vomiting Condition on Discharge: Fair Activity: Resume your previous activity Non-emergency contact: Primary Care Provider Call non-emergency contact if: you have any medication questions, your symptoms worsen, your pain is not controlled and you have a fever Follow-up/Referrals: Hattie Rasmussen, [Primary Care Provider] - (Pt will make own f/u appt) Diet: Regular and Full liquid Diet Comment: Mainly liquid diet for the next 2-3 days; gradually incorporate solids Addtl Attending Provider Instructions: You were hospitalized at [facility] from 06/19 - 06/22 for intractable nausea, vomiting, and diarrhea. This is suspected to be due to a condition called hyperemesis syndrome. It can be triggered by things such as medical marijuana. Over the course of your hospital stay, your vitals remained stable, and your diet was gradually advanced from a clear liquid diet to a regular/solid diet. Your electrolytes were monitored closely and repleted when necessary. At time of discharge, you report you are able to keep down solid food, and able to swallow/keep down pills. New prescriptions upon discharge: - Ondansetron ("Zofran") 4 mg oral dissolvable tablet every 6 hours as needed for nausea/vomiting - Pantoprazole ("Protonix") 40 mg tablets daily each morning Please plan to follow-up with your PCP in the next 2 to 3 weeks for a transitional care appointment. If you develop any new or worsening symptoms, such as fever/chills, severe abdominal pain, intractable nausea/vomiting/diarrhea, chest pain, or trouble breathing, please return to the emergency department immediately. It was a pleasure taking care of you. Please reach out with any questions or concerns. Sincerely, The hospital medicine team at [facility] Pending Studies at Discharge: No Stand-Alone Forms: [facility] Medications and DC Order Prescriptions: New pantoprazole 40 mg tablet,delayed release (DR/EC) 40 mg PO DAILY Qty: 14 0RF Rx Instructions: Take 1 tablet by mouth daily ondansetron 4 mg tablet,disintegrating 4 mg PO Q6H PRN (Reason: nausea and vomiting) Qty: 14 0RF Rx Instructions: Take 1 tablet every 6 hour as needed for nausea and vomiting Can be placed under the tongue/dissolved Discharge Orders: Discharge Order (Routine); Ordered 06/22/25 Ordered By: Elroy Britt/Other Patient Handouts: Cannabis Hyperemesis Syndrome Admission Data Admit Date/Time: 06/19/25 18:15 Attending Provider: Dwayne Johansen Admit Provider: Karlie Devi Primary Care Provider: Hattie Rasmussen Other Providers: Dwayne Johansen Other Interventions: Discharge Summary Assessment (RN) Last Done: 06/22/25 16:37 Hospital Stay Data Consultations 06/19/25 17:54 ED Decision to Admit Stat Diagnostic Imagining Performed 06/19/25 13:16 CT abd pelvis IV con only Stat Pending Results Patient Have Any Pending Studies at Discharge: No Discharge Instructions Given to Patient (Per Discharging Provider) You were hospitalized at [facility] from 06/19 - 06/22 for intractable nausea, vomiting, and diarrhea. This is suspected to be due to a condition called hyperemesis syndrome. It can be triggered by things such as medical marijuana. Over the course of your hospital stay, your vitals remained stable, and your diet was gradually advanced from a clear liquid diet to a re gular/solid diet. Your electrolytes were monitored closely and repleted when necessary. At time of discharge, you report you are able to keep down solid food, and able to swallow/keep down pills. New prescriptions upon discharge: - Ondansetron ("Zofran") 4 mg oral dissolvable tablet every 6 hours as needed for nausea/vomiting - Pantoprazole ("Protonix") 40 mg tablets daily each morning Please plan to follow-up with your PCP in the next 2 to 3 weeks for a transitional care appointment. If you develop any new or worsening symptoms, such as fever/chills, severe ab dominal pain, intractable nausea/vomiting/diarrhea, chest pain, or trouble breathing, please return to the emergency department immediately. It was a pleasure taking care of you. Please reach out with any questions or concerns. Sincerely, The hospital medicine team at [facility] Total Time Total Time Spent Total Time Spent (In Minutes): 40 [place] [address] INP/OBS DISCH >30 MIN Patient Type New Medical Decision Making Moderate Complexity Diagnoses Cannabinoid hyperemesis syndrome R11.2; F12.90 Diarrhea R19.7
[2025-06-22] MEDS: LORazepam 0.5 MG TAB PO STA (16:53)
[2025-06-23 05:53] LABS: Marijuana Quant, GCMS Urine 1376 ng/mL (<5)
== END 2025-06-22 18:53 | disposition home or self-care (01) | DRG 392 ==
LOC: ED 12:56 → 3N 18:15 → INTOOBSV 18:15 → 3N 20:15